=== PATIENT | female | born 1950 | race Caucasian/White ===

== ENCOUNTER 2016-12-20 08:04 | Day surgery (SDC) | payer OTHER, MEDICARE ==
[2016-12-19 17:43] VITALS: BMI 21.2
--- NOTE | 2016-12-20 08:02 | HP ---
[facility]ellite [facility] - Chief Complaint Chief Complaint: left knee pain - Past Medical History Allergies/Adverse Reactions: Allergies Allergy/AdvReac Type Severity Reaction Status Date / Time No Known Drug Allergies Allergy Verified 12/19/16 17:31 - Current Medications Current Medications: Home Medications Medication Instructions Recorded Calcium Carbonate/Vitamin D3 1 each PO DAILY 12/19/16 [Calcium 600 + Vit D Tablet] Cyanocobalamin (Vitamin B-12) 2,500 mcg PO DAILY 12/19/16 [Vitamin B12] Fluoxetine HCl [Prozac] 10 mg PO PRN PRN 12/19/16 Staples-3 Fatty Acids/Fish Oil [Fish 1 each PO DAILY 12/19/16 Oil 1,000 mg Softgel] Satellite Physical Exam - Physical Examination Extremities: Other (+ joint line tenderness) Satellite Impression/Plan - Impression/Plan Impression: internal derangement left knee Operative Procedure: arthrosocpy left knee Date to be Performed: 12/20/16
[2016-12-20] MEDS ORDERED: oxyCODONE HCL 5 MG TABLET PO PRN (08:40)
[2016-12-20] MEDS ORDERED: ONDANSETRON 4 MG/2 ML VIAL IVPUSH PRN (08:40)
[2016-12-20] MEDS ORDERED: LACTATED RINGERS SOLUTION 1,000 ML IV SCH (08:45)
[2016-12-20] MEDS ORDERED: BUPIVACAINE HCL/PF 0.5% (5MG/ML) 10 ML VIAL ONE (09:06)
[2016-12-20] MEDS ORDERED: MIDAZOLAM HCL 2 MG/2 ML SINGLE DOSE VIAL ONE (09:06)
[2016-12-20] MEDS ORDERED: PROPOFOL 20 ML ONE ×3 (09:06)
[2016-12-20] MEDS ORDERED: LIDOCAINE 1%/EPI 1:100000 (20 ML MULTI DOSE VIAL) ONE (09:06)
[2016-12-20] MEDS ORDERED: LIDOCAINE 1%/EPI 1:100000 (20 ML MULTI DOSE VIAL) IJ ONE ×2 (09:54→10:02)
[2016-12-20] MEDS ORDERED: BUPIVACAINE HCL/PF 0.5% (5MG/ML) 10 ML VIAL IJ ONE ×2 (09:56→10:02)
--- NOTE | 2016-12-20 10:29 | OP ---
Operative Note - Note: Operative Date: 12/20/16 Pre-Operative Diagnosis: internal derangement left knee Operation: arthroscopy left knee with partial MM and LM Post-Operative Diagnosis: Same as Pre-op Surgeon: Srikanth Andujar Anesthesia: General Estimated Blood Loss (mls): 0 Operative Report Dictated: Yes
--- NOTE | 2016-12-20 11:12 | OP ---
DATE OF OPERATION: 12/20/2016 PREOPERATIVE DIAGNOSIS: Internal derangement, left knee. POSTOPERATIVE DIAGNOSIS: Internal derangement, left knee. PROCEDURE: Arthroscopy, left knee, with partial medial and lateral meniscectomy. SURGICAL ATTENDING: Srikanth Andujar MD COMPLICATIONS: None. CONDITION: To recovery room in stable condition. DESCRIPTION OF PROCEDURE: Patient taken to the operating room on December 20, 2016. General anesthesia with LMA was administered by the anesthesiologist. Left lower extremity was prepped and draped in the usual sterile fashion. The medial and lateral infrapatellar portal sites were infiltrated with 1% Xylocaine with epinephrine. The scope was placed in the lateral infrapatellar portal and up to the suprapatellar pouch. Through the scope, trocar was infused with cocktail of 10 mL of 1% Xylocaine, 10 mL 0.5% Marcaine, 20 mL of arthroscopic saline to anesthetize the intraarticular portion of the knee. After waiting a period of time, the procedure was performed. Scope was placed in the trocar. The suprapatellar pouch was visualized to be clean. The medial and lateral gutters were visualized to be clean. The undersurface of the patella and trochlea were visualized to be intact. With valgus stress on the knee, the medial compartment was entered. The medial meniscus had a complex tear of its posterior horn. This was debrided back to smooth, stable meniscal tissue using meniscal biter and arthroscopic shaver. The medial femoral condyle was run and found to be intact, as was the medial tibial plateau. At 90 degrees the ACL was visualized, probed, found to be intact. In figure of 4 position, the lateral compartment was entered. The lateral meniscus had a small radial tear in its midportion. This was debrided back to smooth, stable meniscal tissue using a meniscal biter and arthroscopic shaver. The lateral femoral condyle was run and found to be intact, as was the lateral tibial plateau. The knee was irrigated with copious amounts of irrigation. The portals were closed with 4-0 nylon. Prior to closure, 20 mL of 0.5% Marcaine was infused into the outflow portal prior to pulling the trocar. A sterile pressure dressing was applied, patient awakened from anesthesia and transferred to recovery in stable condition. No complications. Estimated blood loss negligible. Cheryl [id number]
[2016-12-20 11:57] VITALS: TEMP 97.7
[2016-12-20 19:15] VITALS: BP 123/58; PULSE 55
--- NOTE | 2016-12-23 09:46 | PATH ---
Surgical Pathology Report Patient Name: MICHAEL ZABALA [facility]. Rec. #: [id number] /Age/Gender: 1950 (Age: 66) / F Account: [id number] Location: [facility] SUR[facility] Taken: 12/20/2016 Received: 12/20/2016 Reported: 12/23/2016 Physicians: Srikanth Andujar M.D. Specimen(s) Received LEFT KNEE SHAVINGS Clinical History Left knee tear Final Diagnosis SHAVINGS, LEFT KNEE, ARTHROSCOPY: FRAGMENTS OF CARTILAGE WITH DEGENERATIVE CHANGES, FIBROADIPOSE TISSUE, AND SYNOVIUM. Electronically Signed Margaux Zavala M.D. Gross Description Received in formalin, labeled "left knee shavings," is a 4.5 x 3.2 x 0.6 cm. aggregate of garcia-yellow soft tissue fragments. A passenger service representative portion is submitted in one cassette. 12/20/201612/20/2016
== END 2016-12-20 14:10 | disposition home or self-care (01) ==
LOC: JASU-SURG 08:04
PROVIDERS: ATTEND Orthopaedic Surgery
PROC: 0SBD4ZZ Excision of Left Knee Joint, Percutaneous Endoscopic Approach (ICD-10-PCS; 2016-12-20)
PROC: 0SBD4ZZ Excision of Left Knee Joint, Percutaneous Endoscopic Approach (ICD-10-PCS; principal; 2016-12-20 09:30)
DX: M23.322 Other meniscus derangements, posterior horn of medial meniscus, left knee (principal)
CPT/HCPCS: 88304-TC; 94760